=== PATIENT | female | born 1980 | race Two or more races ===

== ENCOUNTER 2021-09-23 06:57 | Day surgery (SDC) | payer OTHER | END 2021-09-23 13:50 | disposition home or self-care (01) | LOC: AMB-ENDOS 06:57 → CIR.AMB 06:57 → AMB-ENDOS 13:50 | PROVIDERS: ATTEND Surgery | DX: D12.5 Benign neoplasm of sigmoid colon (principal); Z86.010 Personal history of colon polyps; Z20.822 Contact with and (suspected) exposure to COVID-19 ==

== ENCOUNTER 2023-10-26 05:30 | Day surgery (SDC) | payer OTHER ==
[2023-10-24 09:14] LABS: PH,URINE 7.5 (5.0-8.0); URINE APPEARANCE Clear; URINE BILIRRUBIN Negative (NEGATIVE); URINE BLOOD Negative; URINE COLOR Yellow; URINE GLUCOSE Negative (NEGATIVE); URINE KETONE Negative (NEGATIVE); URINE LEUKOCYTE Negative; URINE NITRATE Negative; URINE PROTEIN Negative (NEGATIVE); URINE UROBILINOGEN 0.2 E.U./dl
[2023-10-24 09:16] LABS: HEMATOCRIT 37.3 % (36.0-45.00); HEMOGLOBIN 12.7 g/dL (12.0-15.00); MEAN CELL VOLUME 89.2 fL (80.00-100.00); MEAN CORPUSCULAR HEMOGLOBIN 30.3 pg (27.00-32.0); PLATELET COUNT 328 K/uL (150-450); RED BLOOD COUNT 4.18 M/uL (4.00-6.00); RED CELL DISTRIBUTION WIDTH 13.1 % (11.5-14.5)
[2023-10-24 09:20] LABS: URINE BACTERIA 93.2 uL (0.0-1933); URINE EPITHELIAL CELLS 3.6 uL (0.0-38.8); URINE RBC 3.5 uL (0.0-20.8)
[2023-10-24 09:31] LABS: URINE WBC 0.9 uL (0.0-23.2)
[2023-10-24 09:55] LABS: PARTIAL THROMBOPLASTIN TIME 27.9 SECONDS (22.0-34.0); PROTHROMBIN TIME 10.9 SECONDS (9.0-11.5)
[2023-10-24 12:45] LABS: BILIRUBIN TOTAL 0.51 mg/dL (0.3-1.2); CALCIUM 9.6 mg/dL (8.5-10.1); CREATININE SERUM 0.72 mg/dL (0.55-1.02); GFR 89.26; GLOBULINA 3.5 G/DL (2.4-3.5); POTASSIUM 3.97 mEq/L (3.5-5.1); TOTAL PROTEIN 7.5 gm/dL (6.4-8.2)
[~2023-10-26] VITALS: Ht 157.5 cm; Wt 56.7 kg
[2023-10-26] MEDS ORDERED: CHLORHEXIDINE GLUCONATE 120 ML BOTTLE TOP ONE (07:11)
[2023-10-26] MEDS ORDERED: POVIDONE-IODINE 118 ML BOTT TOP ONE (07:11)
[2023-10-26] MEDS ORDERED: CEFAZOLIN SODIUM 1,000 MG VIAL ONE (07:12)
[2023-10-26] MEDS ORDERED: MORGIDOX100 MG PO (10:11)
[2023-10-26] MEDS ORDERED: IBU600 MG PO (10:12)
== END 2023-10-26 14:00 | disposition home or self-care (01) ==
LOC: CIR.AMB 05:30
PROVIDERS: ATTEND Obstetrics & Gynecology
DX: N84.0 Polyp of corpus uteri (principal); D25.0 Submucous leiomyoma of uterus; N92.0 Excessive and frequent menstruation with regular cycle; D64.9 Anemia, unspecified

== ENCOUNTER 2024-02-15 09:40 | Day surgery (SDC) | payer OTHER ==
[~2024-02-15 09:40] MED LIST: IBU600 MG PO; MORGIDOX100 MG PO
[2024-02-15] MEDS ORDERED: fentaNYL CITRATE 50 MCG/ML AMPUL IV ONE (13:30)
[2024-02-15] MEDS ORDERED: MIDAZOLAM HCL 2 MG/2 ML VIAL IV ONE (13:30)
[2024-02-15] MEDS ORDERED: DIPHENHYDRAMINE HCL 50 MG/ML VIAL 1ML IV ONE (13:30)
== END 2024-02-15 15:10 | disposition home or self-care (01) ==
LOC: AMB-ENDOS 09:40 → CIR.AMB 13:15 → AMB-ENDOS 15:10
PROVIDERS: ATTEND Internal Medicine Gastroenterology
DX: D12.4 Benign neoplasm of descending colon (principal); D12.5 Benign neoplasm of sigmoid colon; K63.5 Polyp of colon

== ENCOUNTER 2024-06-06 09:10 | Day surgery (SDC) | payer OTHER ==
[2024-06-06] MEDS ORDERED: MIDAZOLAM HCL 2 MG/2 ML VIAL IV ONE (12:30)
[2024-06-06] MEDS ORDERED: fentaNYL CITRATE 50 MCG/ML AMPUL IV ONE (12:30)
[2024-06-06] MEDS ORDERED: DIPHENHYDRAMINE HCL 50 MG/ML VIAL 1ML IV SCH (13:00)
== END 2024-06-06 13:42 | disposition home or self-care (01) ==
LOC: AMB-ENDOS 09:10
PROVIDERS: ATTEND Internal Medicine Gastroenterology
DX: K63.5 Polyp of colon (principal)